=== PATIENT | male | born 1965 | race Caucasian/White ===

== ENCOUNTER → 2020-03-10 | Day surgery (SDC) | payer OTHER ==
[~2020-03-10] VITALS: Ht 177.8 cm; Wt 83.5 kg
[2020-03-10 08:51] VITALS: BP 146/76
[2020-03-10 12:32] VITALS: BP 134/88
== END | disposition home or self-care (01) ==
LOC: DS 07:10
PROVIDERS: ATTEND Internal Medicine Gastroenterology
DX: R19.5 Other fecal abnormalities (principal); K57.30 Diverticulosis of large intestine without perforation or abscess without bleeding; K64.8 Other hemorrhoids; R73.03 Prediabetes; B49 Unspecified mycosis; Z86.19 Personal history of other infectious and parasitic diseases
CPT/HCPCS: 45378; J1200; J1610; J2250; J2310; J3010; J3490